=== PATIENT | male | born 1995 | race Two or more races ===

== ENCOUNTER 2016-12-24 01:12 | Emergency (ER) | payer OTHER ==
[~2016-12-24] VITALS: Ht 172.7 cm; Wt 70.3 kg
[~2016-12-24 01:12] MED LIST: ADDERAL20 MG ORAL; IBUPROFEN400 MG ORAL; XANAX0.25 MG ORAL
[2016-12-24 01:52] VITALS: BP 125/66
[2016-12-24] MEDS ORDERED: Tylenol #3 tab (300mg/30mg) ORAL ONE (02:15)
[2016-12-24] MEDS ORDERED: ACETAMINOPHEN-1 EAC1 ORAL (02:39)
[2016-12-24] MEDS ORDERED: IBUPROFEN600 MG ORAL (02:39)
[2016-12-24 02:55] VITALS: BP 128/68
[2016-12-24 02:59] VITALS: BP 128/68
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
== END 2016-12-24 02:59 | disposition home or self-care (01) ==
LOC: EMR 01:48
DX: S00.83XA Contusion of other part of head, initial encounter (principal); S00.31XA Abrasion of nose, initial encounter; Y04.2XXA Assault by strike against or bumped into by another person, initial encounter; Y92.9 Unspecified place or not applicable; Z88.0 Allergy status to penicillin
CPT/HCPCS: 99284

== ENCOUNTER 2018-05-05 23:49 | Emergency (ER) | payer MEDICAID, OTHER ==
[~2018-05-05] VITALS: Ht 172.7 cm; Wt 72.6 kg
[~2018-05-05 23:49] MED LIST changes: +ACETAMINOPHEN-1 EAC1 ORAL; +IBUPROFEN600 MG ORAL
--- NOTE | 2018-05-05 23:55 | Emergency Room Report ---
History of Present Illness General Chief Complaint: Alcohol Intoxication Source: EMS Present Illness HPI Is a 22-year-old male brought in by EMS with police escort for alcohol intoxication. He was found by the nearby apartment complex very intoxicated. He has been drinking today. He's been yelling and was combative. Nose no trauma. He has to be restrained in handcuffs. Unable to get any history from the patient because of intoxication. Allergies: Coded Allergies: PENICILLINS (Verified Allergy, Unknown, 12/24/16) UNABLE TO ASSESS (Unverified , 05/05/18) Patient History Past Medical History: see triage record, old chart reviewed Past Surgical History: none Pertinent Family History: none Social History: Reports: alcohol use, drug use - marijuana Immunizations: other Reviewed Nursing Documentation: PMH: Agreed; PSxH: Agreed Nursing Documentation-PMH Past Medical History Deferred: Pt Cognitively Impaired Past Medical History: Deferred Review of Systems All Other Systems: limited - secondary to intoxication Physical Exam Vital Signs Date Time Temp Pulse Resp B/P (MAP) Pulse Ox O2 Delivery O2 Flow Rate FiO2 05/05/18 23:36 97.4 130 22 130/79 96 Room Air 97.3 vitals with tachycardia Sp02 EP Interpretation: reviewed, normal General Appearance: well appearing, no apparent distress, other - intoxicated. Yelling profanities Head: normocephalic, atraumatic Eyes: bilateral eye PERRL, bilateral eye EOMI ENT: hearing grossly normal, normal pharynx Neck: full range of motion, supple, no meningismus Respiratory: chest non-tender, lungs clear, normal breath sounds Cardiovascular #1: regular rate, rhythm, no murmur Gastrointestinal: normal bowel sounds, non tender, no mass, no organomegaly, no bruit, non-distended Musculoskeletal: back normal, normal range of motion Psychiatric: mood/affect normal Skin: warm/dry Medical Decision Making Diagnostic Impression: Primary Impression: Acute alcoholic intoxication Qualified Codes: F10.929 - Alcohol use, unspecified with intoxication, unspecified ER Course Patient with altered mental status secondary to alcohol intoxication. No trauma. Patient slept to the night. He received Haldol and Ativan for sedation because of his agitation. we'll observe until clinical sobriety. Last Vital Signs Date Time Temp Pulse Resp B/P (MAP) Pulse Ox O2 Delivery O2 Flow Rate FiO2 05/05/18 23:36 97.4 130 22 130/79 96 Room Air 97.3 Status: improved Disposition: HOME, SELF-CARE Condition: Improved Patient Instructions: Alcohol Intoxication, [id number] Additional Instructions: Stop abusing alcohol. Follow-up with your doctor in 7 days. Return if worse. ANI BOB M.D. May 05, 2018 23:55
[2018-05-06] MEDS ORDERED: LORazepam Inj 2mg/ml 1ml IM ONE
[2018-05-06] MEDS ORDERED: Haloperidol 5mg/ml Inj IM ONE
[2018-05-06 01:54] VITALS: BP 97/59
[2018-05-06 05:10] VITALS: BP 96/60
[2018-05-06 08:03] VITALS: BP 103/66
[2018-05-06 10:00] VITALS: BP 103/66
== END 2018-05-06 10:00 | disposition home or self-care (01) ==
LOC: EDBD 23:49 → EMR 23:59
DX: F10.129 Alcohol abuse with intoxication, unspecified (principal); Z88.0 Allergy status to penicillin
CPT/HCPCS: 36415; 80307; 80329; 96372; 99283; J1630

== ENCOUNTER 2018-05-06 22:15 | Emergency (ER) | payer MEDICAID ==
[~2018-05-06] VITALS: Ht 177.8 cm; Wt 74.8 kg
[2018-05-06 22:20] VITALS: BP 132/88
[2018-05-06 22:50] LABS: EOSINOPHILS % (AUTO) 4.9 % (0.0-3.0); HEMATOCRIT 43.6 % (42.0-52.0); HEMOGLOBIN 14.8 G/DL (14.2-18.0); LYMPHOCYTES % (AUTO) 18.3 % (20.0-45.0); MEAN CORPUSCULAR VOLUME 94 FL (80-99); MONOCYTES % (AUTO) 7.6 % (1.0-10.0); NEUTROPHILS % (AUTO) 68.3 % (45.0-75.0); PLATELET COUNT 279 K/UL (150-450); RED BLOOD COUNT 4.65 M/UL (4.70-6.10); RED CELL DISTRIBUTION WIDTH 11.5 % (11.6-14.8); WHITE BLOOD COUNT 8.5 K/UL (4.8-10.8)
[2018-05-06 22:59] LABS: ANION GAP 4 mmol/L (5-15); BLOOD UREA NITROGEN 12 mg/dL (7-18); CALCIUM 8.8 MG/DL (8.5-10.1); CARBON DIOXIDE 33 MMOL/L (21-32); CHLORIDE 103 MMOL/L (98-107); POTASSIUM 3.8 MMOL/L (3.5-5.1); SODIUM 140 MMOL/L (136-145)
[2018-05-06 23:05] LABS: ALANINE AMINOTRANSFERASE 62 U/L (12-78); ALBUMIN/GLOBULIN RATIO 1.2 (1.0-2.7); ALKALINE PHOSPHATASE 75 U/L (46-116); ASPARTATE AMINO TRANSFERASE 52 U/L (15-37); BILIRUBIN,TOTAL 0.4 MG/DL (0.2-1.0)
[2018-05-07 00:19] VITALS: BP 133/90
--- NOTE | 2018-05-07 01:45 | Emergency Room Report ---
History of Present Illness General Chief Complaint: Altered Mental Status Source: Patient Present Illness HPI Patient is a 22-year-old male who presented after reported altered mental status. Patient had recently been seen for similar symptoms yesterday. Patient was noted to have heavy alcohol use yesterday. Patient denies any current complaints. The patient had been noted to have prior history of psychiatric disease. He had not been having any vomiting or diarrhea. Patient reports having no fever.The patient was brought in by EMS. Allergies: Coded Allergies: PENICILLINS (Verified Allergy, Unknown, 12/24/16) UNABLE TO ASSESS (Unverified , 05/05/18) Patient History Reviewed Nursing Documentation: PMH: Agreed; PSxH: Agreed Review of Systems All Other Systems: negative except mentioned in HPI Physical Exam Vital Signs Date Time Temp Pulse Resp B/P (MAP) Pulse Ox O2 Delivery O2 Flow Rate FiO2 05/06/18 22:09 98.0 96 18 132/88 98 Room Air 98.1 Sp02 EP Interpretation: reviewed, normal General Appearance: normal inspection, well appearing, no apparent distress, alert, GCS 15, non-toxic Head: atraumatic ENT: normal ENT inspection, hearing grossly normal, normal voice Neck: normal inspection, full range of motion, supple, no bony tend Respiratory: normal inspection, lungs clear, normal breath sounds, no respiratory distress, no retraction, no wheezing Cardiovascular #1: regular rate, rhythm, no edema Gastrointestinal: normal inspection, normal bowel sounds, non tender, soft, no guarding, no hernia Genitourinary: no CVA tenderness Musculoskeletal: normal inspection, back normal, normal range of motion Neurologic: normal inspection, alert, responsive, speech normal Psychiatric: normal inspection, judgement/insight normal, mood/affect normal Skin: normal inspection, normal color, no rash Medical Decision Making Diagnostic Impression: Primary Impression: Marijuana intoxication ER Course Patient presented for altered mental status. Differential diagnosis included but was not limited to ischemic stroke, subarachnoid hemorrhage, hypoglycemia, spinal cord injury, neurodegenerative disorder, urinary tract infection, hypoxemia.Because of complexity of patient's case laboratory testing and imaging studies were ordered. Laboratory studies are unremarkable. The patient was noted to have improvement in his mental status over time. The patient noted be urine direction positive for marijuana. The patient is advised to follow up with primary care doctor in 1-2 days. Patient is advised to return if any worsening condition or if any changes in status that are concerning. This report is dictated with [employer] web weaver software which may occasionally lead to discrepancies related to use of this software. Labs Test 05/06/18 22:30 White Blood Count 8.5 K/UL (4.8-10.8) Red Blood Count 4.65 M/UL (4.70-6.10) Hemoglobin 14.8 G/DL (14.2-18.0) Hematocrit 43.6 % (42.0-52.0) Mean Corpuscular Volume 94 FL (80-99) Mean Corpuscular Hemoglobin 31.7 PG (27.0-31.0) Mean Corpuscular Hemoglobin Concent 33.9 G/DL (32.0-36.0) Red Cell Distribution Width 11.5 % (11.6-14.8) Platelet Count 279 K/UL (150-450) Mean Platelet Volume 6.1 FL (6.5-10.1) Neutrophils (%) (Auto) 68.3 % (45.0-75.0) Lymphocytes (%) (Auto) 18.3 % (20.0-45.0) Monocytes (%) (Auto) 7.6 % (1.0-10.0) Eosinophils (%) (Auto) 4.9 % (0.0-3.0) Basophils (%) (Auto) 1.0 % (0.0-2.0) Sodium Level 140 MMOL/L (136-145) Potassium Level 3.8 MMOL/L (3.5-5.1) Chloride Level 103 MMOL/L (98-107) Carbon Dioxide Level 33 MMOL/L (21-32) Anion Gap 4 mmol/L (5-15) Blood Urea Nitrogen 12 mg/dL (7-18) Creatinine 1.0 MG/DL (0.55-1.30) Estimat Glomerular Filtration Rate > 60 mL/min (>60) Glucose Level 107 MG/DL (74-106) Calcium Level 8.8 MG/DL (8.5-10.1) Total Bilirubin 0.4 MG/DL (0.2-1.0) Aspartate Amino Transf (AST/SGOT) 52 U/L (15-37) Alanine Aminotransferase (ALT/SGPT) 62 U/L (12-78) Alkaline Phosphatase 75 U/L (46-116) Total Protein 7.4 G/DL (6.4-8.2) Albumin 4.0 G/DL (3.4-5.0) Globulin 3.4 g/dL Albumin/Globulin Ratio 1.2 (1.0-2.7) Salicylates Level 2.0 ug/mL (2.8-20) Urine Opiates Screen Negative (NEGATIVE) Acetaminophen Level < 2 MCG/ML (10-30) Urine Barbiturates Screen Negative (NEGATIVE) Phencyclidine (PCP) Screen Negative (NEGATIVE) Urine Amphetamines Screen Negative (NEGATIVE) Urine Benzodiazepines Screen Negative (NEGATIVE) Urine Cocaine Screen Negative (NEGATIVE) Urine Marijuana (THC) Screen Positive (NEGATIVE) Serum Alcohol < 3 mg/dL Last Vital Signs Date Time Temp Pulse Resp B/P (MAP) Pulse Ox O2 Delivery O2 Flow Rate FiO2 05/07/18 00:19 88 18 133/90 98 Room Air 05/06/18 22:20 98.1 98.1 Status: improved Disposition: HOME, SELF-CARE Condition: Stable Referrals: NON PHYSICIAN (PCP) Patient Instructions: Substance Abuse Testing Ryley Dawkins MD May 07, 2018 01:45
[2018-05-07 02:10] VITALS: BP 127/82
[2018-05-07 02:50] VITALS: BP 118/78
== END 2018-05-07 03:00 | disposition home or self-care (01) ==
LOC: EDBD 22:15 → EMR 23:38
DX: F12.929 Cannabis use, unspecified with intoxication, unspecified (principal); R41.82 Altered mental status, unspecified; Z88.0 Allergy status to penicillin
CPT/HCPCS: 36415; 80053; 80307; 80329; 85025; 99283

== ENCOUNTER 2020-05-03 14:37 | Emergency (ER) | payer MEDICAID ==
[~2020-05-03] VITALS: Ht 170.2 cm; Wt 81.6 kg
[2020-05-03 14:35] VITALS: BP 106/66
[2020-05-03 14:43] VITALS: BP 106/66
--- NOTE | 2020-05-03 16:58 | Emergency Room Report ---
History of Present Illness General Chief Complaint: Alcohol Intoxication Source: Patient Present Illness HPI 24-year-old male in no no symptom past medical history brought in by paramedics due to alcohol intoxication however patient eloped before being seen history taken was done. Patient stable. 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 Patient History Past Medical History: see triage record Past Surgical History: unable to obtain Pertinent Family History: unable to obtain Reviewed Nursing Documentation: PMH: Agreed; PSxH: Agreed Nursing Documentation-PMH Past Medical History: No Stated History Review of Systems All Other Systems: negative except mentioned in HPI Physical Exam Vital Signs Date Time Temp Pulse Resp B/P (MAP) Pulse Ox O2 Delivery O2 Flow Rate FiO2 05/03/20 14:30 98.1 130 20 106/66 (79) 98 Room Air Sp02 EP Interpretation: reviewed General Appearance: normal inspection ENT: normal ENT inspection Neck: normal inspection Musculoskeletal: normal inspection Psychiatric: normal inspection Lymphatic: normal inspection Medical Decision Making PA Attestation All diagnoses and treatment plans were reviewed and discussed with my supervising physician Dr. Berokwitz Diagnostic Impression: Primary Impression: Eloped from emergency department ER Course 24-year-old male in no no symptom past medical history brought in by paramedics due to alcohol intoxication however patient eloped before being seen history taken was done. Patient stable. Ddx considered but are not limited to: Alcohol intoxication with altered level of consciousness, alcohol intoxication causing pancreatitis, alcohol abuse, multi drug use and alcohol intoxication Vital signs: are WNL, pt. is afebrile H&PE are most consistent with: Eloped ORDERS: none required at this time, the diagnosis is clinical ER intervention: DISCHARGE: At this time pt. is stable for d/c to home. Will provide printed patient care instructions, and any necessary prescriptions. Care plan and follow up instructions have been discussed with the patient prior to discharge. Patient eloped before being seen or any blood draw or fluid administration Last Vital Signs Date Time Temp Pulse Resp B/P (MAP) Pulse Ox O2 Delivery O2 Flow Rate FiO2 05/03/20 14:43 98.1 100 20 106/66 98 Room Air Disposition: ELOPED Condition: Unknown Scripts No Active Prescriptions or Reported Meds Referrals: NON PHYSICIAN (PCP) Shayy Chavez May 03, 2020 16:58
== END 2020-05-03 14:42 | disposition left against medical advice (07) ==
LOC: EDBD 14:37 → EMR 14:40
DX: F10.129 Alcohol abuse with intoxication, unspecified (principal); Z88.0 Allergy status to penicillin; Z53.21 Procedure and treatment not carried out due to patient leaving prior to being seen by health care provider